=== PATIENT | male | born 1975 | race Caucasian/White ===

== ENCOUNTER 2017-09-07 15:57 | Emergency (ER) | payer SELFPAY ==
[~2017-09-07] VITALS: Ht 175.3 cm; Wt 81.5 kg
[~2017-09-07 15:57] MED LIST: Z.0.NO CURRENT MEDS
[2017-09-07 15:59] VITALS: BP 132/100; PULSE 107; RESP 20; TEMP 98.7; O2SAT 96
[2017-09-07 17:18] LABS: AUTOMATED NEUTROPHIL # 3.4 TH/MM3 (1.8-7.7); BASOPHIL # 0.1 TH/MM3 (0-0.2); BASOPHIL % 0.9 % (0.0-2.0); EOSINOPHIL % 0.8 % (0.0-4.0); HEMATOCRIT 48.5 % (39.0-51.0); HEMOGLOBIN 16.9 GM/DL (13.0-17.0); LYMPH % 30.1 % (9.0-44.0); LYMPHOCYTE # 1.8 TH/MM3 (1.0-4.8); MEAN CELL VOLUME 94.5 FL (80.0-100.0); MEAN CORPUSCULAR HGB CONC 34.9 % (32.0-36.0); MEAN PLATELET VOLUME 7.6 FL (7.0-11.0); MONO % 10.1 % (0.0-8.0); MONOCYTE # 0.6 TH/MM3 (0-0.9); NEUT % 58.1 % (16.0-70.0); PLATELET COUNT 240 TH/MM3 (150-450); RED BLOOD COUNT 5.13 MIL/MM3 (4.50-5.90); RED CELL DISTRIBUTION WIDTH 12.9 % (11.6-17.2); WHITE BLOOD COUNT 5.9 TH/MM3 (4.0-11.0)
--- NOTE | 2017-09-07 17:19 | PD ---
HPI Chief Complaint: Medical Clearance Time Seen by Provider: 16:02 Travel History International Travel<30 days: No Contact w/Intl Traveler<30days: No Traveled to known affect area: No History of Present Illness HPI Pt is a 41-year-old male presenting to the emergency department for detox. Patient states he went to [facility] for detox but started vomiting 30 minutes prior to arrival. He was then sent here. Patient states his last alcoholic drink was 1 hour ago, he reports taking several beers and vodka this morning. He reports daily alcohol use. Patient presents with his father. He denies any suicidal or homicidal ideations. He denies any abdominal pain but still feels nauseated now. There are no alleviating factors. Onset was sudden. Patient states that he has a long family history of alcoholism. He has no physical complaints otherwise at this time [facility] Past Medical History Arthritis: Yes (MILD AND OCCASSIONAL) Autoimmune Disease: No Blood Disorders: No Anxiety: No Depression: No Cancer: No Cardiovascular Problems: No Chemotherapy: No Diabetes: No Diminished Hearing: No Endocrine: No GERD: Yes Glaucoma: No Genitourinary: No Immune Disorder: No Implanted Vascular Access Dvce: No Musculoskeletal: Yes Neurologic: No Psychiatric: No Reproductive: No Respiratory: No Radiation Therapy: No Sickle Cell Disease: No Thyroid Disease: No Past Surgical History AICD: No Arteriovenous Shunt: No Insulin Pump: No Joint Replacement: No Pacemaker: No Other Surgery: Yes (Jaw surgery ) Social History Alcohol Use: Yes (etoh abuse ) Tobacco Use: Yes (1/2 PPD) Substance Use: Yes (Poly) Allergies-Medications (Allergen,Severity, Reaction): Coded Allergies: No Known Allergies (Verified , 12/11/12) Reported Meds & Prescriptions Reported Meds & Active Scripts Active Reported No Current Meds (Miscellaneous Medication) Misc Review of Systems Except as stated in HPI: all other systems reviewed are Neg Cardiovascular: No: Chest Pain or Discomfort Respiratory: No: Shortness of Breath Gastrointestinal: Positive: Nausea, Vomiting, No: Abdominal Pain Psychiatric: Positive: Substance Abuse Physical Exam Narrative GENERAL: Intoxicated appearing, alert, well-developed, male. Presenting in no acute distress. SKIN: Warm and dry. HEAD: Normocephalic. EYES: No scleral icterus. No injection or drainage. CARDIOVASCULAR: Regular rate RESPIRATORY: No accessory muscle use. Data Data Last Documented VS Vital Signs Date Time Temp Pulse Resp B/P (MAP) Pulse Ox O2 Delivery O2 Flow Rate FiO2 09/07/17 17:21 09/07/17 15:59 98.7 107 20 96 Room Air Orders Orders Complete Blood Count With Diff (09/07/17 16:06) Comprehensive Metabolic Panel (09/07/17 16:06) Psych Screen (09/07/17 16:06) Alcohol (Ethanol) (09/07/17 16:06) Lipase (09/07/17 16:06) Labs Laboratory Tests Test 09/07/17 16:11 White Blood Count 5.9 TH/MM3 Red Blood Count 5.13 MIL/MM3 Hemoglobin 16.9 GM/DL Hematocrit 48.5 % Mean Corpuscular Volume 94.5 FL Mean Corpuscular Hemoglobin 33.0 PG Mean Corpuscular Hemoglobin Concent 34.9 % Red Cell Distribution Width 12.9 % Platelet Count 240 TH/MM3 Mean Platelet Volume 7.6 FL Neutrophils (%) (Auto) 58.1 % Lymphocytes (%) (Auto) 30.1 % Monocytes (%) (Auto) 10.1 % Eosinophils (%) (Auto) 0.8 % Basophils (%) (Auto) 0.9 % Neutrophils # (Auto) 3.4 TH/MM3 Lymphocytes # (Auto) 1.8 TH/MM3 Monocytes # (Auto) 0.6 TH/MM3 Eosinophils # (Auto) 0.0 TH/MM3 Basophils # (Auto) 0.1 TH/MM3 CBC Comment DIFF FINAL Differential Comment Blood Urea Nitrogen 9 MG/DL Creatinine 0.91 MG/DL Random Glucose 126 MG/DL Total Protein 7.6 GM/DL Albumin 4.0 GM/DL Calcium Level 8.3 MG/DL Alkaline Phosphatase 99 U/L Aspartate Amino Transf (AST/SGOT) 86 U/L Alanine Aminotransferase (ALT/SGPT) 72 U/L Total Bilirubin 0.2 MG/DL Sodium Level 146 MEQ/L Potassium Level 3.2 MEQ/L Chloride Level 108 MEQ/L Carbon Dioxide Level 25.6 MEQ/L Anion Gap 12 MEQ/L Estimat Glomerular Filtration Rate 92 ML/MIN Lipase 118 U/L Ethyl Alcohol Level 363 MG/DL MDM Medical Decision Making Medical Screen Exam Complete: Yes Emergency Medical Condition: Yes Interpretation(s) Laboratory Tests Test 09/07/17 16:11 White Blood Count 5.9 TH/MM3 Red Blood Count 5.13 MIL/MM3 Hemoglobin 16.9 GM/DL Hematocrit 48.5 % Mean Corpuscular Volume 94.5 FL Mean Corpuscular Hemoglobin 33.0 PG Mean Corpuscular Hemoglobin Concent 34.9 % Red Cell Distribution Width 12.9 % Platelet Count 240 TH/MM3 Mean Platelet Volume 7.6 FL Neutrophils (%) (Auto) 58.1 % Lymphocytes (%) (Auto) 30.1 % Monocytes (%) (Auto) 10.1 % Eosinophils (%) (Auto) 0.8 % Basophils (%) (Auto) 0.9 % Neutrophils # (Auto) 3.4 TH/MM3 Lymphocytes # (Auto) 1.8 TH/MM3 Monocytes # (Auto) 0.6 TH/MM3 Eosinophils # (Auto) 0.0 TH/MM3 Basophils # (Auto) 0.1 TH/MM3 CBC Comment DIFF FINAL Differential Comment Blood Urea Nitrogen 9 MG/DL Creatinine 0.91 MG/DL Random Glucose 126 MG/DL Total Protein 7.6 GM/DL Albumin 4.0 GM/DL Calcium Level 8.3 MG/DL Alkaline Phosphatase 99 U/L Aspartate Amino Transf (AST/SGOT) 86 U/L Alanine Aminotransferase (ALT/SGPT) 72 U/L Total Bilirubin 0.2 MG/DL Sodium Level 146 MEQ/L Potassium Level 3.2 MEQ/L Chloride Level 108 MEQ/L Carbon Dioxide Level 25.6 MEQ/L Anion Gap 12 MEQ/L Estimat Glomerular Filtration Rate 92 ML/MIN Lipase 118 U/L Ethyl Alcohol Level 363 MG/DL Vital Signs Date Time Temp Pulse Resp B/P (MAP) Pulse Ox O2 Delivery O2 Flow Rate FiO2 09/07/17 17:21 09/07/17 15:59 98.7 107 20 132/100 (111) 96 Room Air Differential Diagnosis Substance abuse versus withdrawal versus metabolic abnormality versus other Narrative Course Patient is a 41-year-old male who presented to the emergency department for detox. He presented with his father who is concerned about his alcoholism. Patient is mildly tachycardic on arrival but is well-appearing otherwise. Workup initiated in triage, patient is awaiting bed placement. Patient was called to be placed in a bed, he was no longer found in the emergency department. Patient left AMA. Diagnosis Primary Impression: Left against medical advice Kristen Toney Sep 07, 2017 17:19
[2017-09-07 17:37] LABS: ALKALINE PHOSPHATASE 99 U/L (45-117); TOTAL BILIRUBIN ADULT 0.2 MG/DL (0.2-1.0); TOTAL PROTEIN 7.6 GM/DL (6.4-8.2)
[2017-09-07 17:44] LABS: ALT (GPT) 72 U/L (12-78); AST (GOT) 86 U/L (15-37); BICARBONATE 25.6 MEQ/L (21.0-32.0); BLOOD UREA NITROGEN 9 MG/DL (7-18); CALCIUM 8.3 MG/DL (8.5-10.1); CHLORIDE 108 MEQ/L (98-107); CREATININE 0.91 MG/DL (0.60-1.30); GLOMERULAR FILTRATION RATE 92 ML/MIN (>89); GLUCOSE,RANDOM 126 MG/DL (74-106); LIPASE 118 U/L (73-393); SODIUM (NA) 146 MEQ/L (136-145)
== END 2017-09-07 17:19 | disposition left against medical advice (07) ==
LOC: NED 15:57
DX: R11.2 Nausea with vomiting, unspecified (principal); F10.20 Alcohol dependence, uncomplicated; F17.200 Nicotine dependence, unspecified, uncomplicated; Y90.8 Blood alcohol level of 240 mg/100 ml or more
CPT/HCPCS: 80053; 80307; 83690; 85025; 99283

== ENCOUNTER 2017-09-26 17:43 | Emergency (ER) | payer OTHER ==
[~2017-09-26] VITALS: Ht 175.3 cm; Wt 80.0 kg
[2017-09-26 18:00] VITALS: BP 165/90; PULSE 110; RESP 18; TEMP 97.9; O2SAT 99
[2017-09-26 19:48] LABS: BASOPHIL # 0.1 TH/MM3 (0-0.2); EOSINOPHIL % 0.4 % (0.0-4.0); HEMATOCRIT 47.7 % (39.0-51.0); HEMOGLOBIN 16.9 GM/DL (13.0-17.0); LYMPH % 19.3 % (9.0-44.0); LYMPHOCYTE # 1.1 TH/MM3 (1.0-4.8); MEAN CELL VOLUME 91.5 FL (80.0-100.0); MEAN CORPUSCULAR HEMOGLOBIN 32.5 PG (27.0-34.0); MEAN CORPUSCULAR HGB CONC 35.5 % (32.0-36.0); MEAN PLATELET VOLUME 7.3 FL (7.0-11.0); MONO % 8.2 % (0.0-8.0); MONOCYTE # 0.5 TH/MM3 (0-0.9); NEUT % 71.1 % (16.0-70.0); PLATELET COUNT 143 TH/MM3 (150-450); RED BLOOD COUNT 5.21 MIL/MM3 (4.50-5.90); RED CELL DISTRIBUTION WIDTH 13.1 % (11.6-17.2); WHITE BLOOD COUNT 5.6 TH/MM3 (4.0-11.0)
[2017-09-26 20:29] LABS: ALBUMIN 4.3 GM/DL (3.4-5.0); ALKALINE PHOSPHATASE 128 U/L (45-117); ALT (GPT) 60 U/L (12-78); AST (GOT) 87 U/L (15-37); BICARBONATE 25.6 MEQ/L (21.0-32.0); BLOOD UREA NITROGEN 13 MG/DL (7-18); CALCIUM 8.8 MG/DL (8.5-10.1); CHLORIDE 106 MEQ/L (98-107); CREATININE 0.84 MG/DL (0.60-1.30); GLOMERULAR FILTRATION RATE 101 ML/MIN (>89); GLUCOSE,RANDOM 98 MG/DL (74-106); SODIUM (NA) 142 MEQ/L (136-145); TOTAL BILIRUBIN ADULT 0.4 MG/DL (0.2-1.0); TOTAL PROTEIN 8.1 GM/DL (6.4-8.2)
[2017-09-26 20:30] LABS: ACETAMINOPHEN LESS THAN 2.0 MCG/ML (10.0-30.0)
--- NOTE | 2017-09-26 21:15 | PD ---
HPI Chief Complaint: Psychiatric Symptoms Time Seen by Provider: 21:03 Travel History International Travel<30 days: No Contact w/Intl Traveler<30days: No Traveled to known affect area: No History of Present Illness HPI 41-year-old male was Burger acted and brought in for psychiatric evaluation. Patient has been an alcoholic for the past 20 years. Patient's father called law enforcement because patient has been threatened his brother and his father at home. Patient was reported to be violent at home. Patient may has history of bipolar disorder and split personality. Patient has history of alcohol abuse and possible DVT in the past. Patient denies any illicit drug abuse. Patient denies any medical problem. Patient states that he is not on any routine medication. Patient denies any headache. Patient denies any chest pain or shortness of breath. Patient denies abdominal pain. Patient denies any nausea vomiting diarrhea. Patient denies any focal weakness or numbness of the extremity. 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 PFSH Past Medical History Arthritis: Yes (MILD AND OCCASSIONAL) Autoimmune Disease: No Blood Disorders: No Anxiety: No Depression: No Cancer: No Cardiovascular Problems: No Chemotherapy: No Diabetes: No Diminished Hearing: No Endocrine: No Gastrointestinal Disorders: Yes GERD: Yes Glaucoma: No Genitourinary: No Immune Disorder: No Implanted Vascular Access Dvce: No Musculoskeletal: Yes Neurologic: No Psychiatric: No Reproductive: No Respiratory: No Radiation Therapy: No Sickle Cell Disease: No Thyroid Disease: No ?: Not Past Surgical History AICD: No Arteriovenous Shunt: No Insulin Pump: No Joint Replacement: No Pacemaker: No Other Surgery: Yes (Jaw surgery ) Social History Alcohol Use: Yes (etoh abuse ) Tobacco Use: Yes (1/2 PPD) Substance Use: Yes (Poly) Allergies-Medications (Allergen,Severity, Reaction): Coded Allergies: No Known Allergies (Verified Adverse Reaction, Unknown, 09/26/17) Reported Meds & Prescriptions Reported Meds & Active Scripts Active Reported No Current Meds (Miscellaneous Medication) Misc Review of Systems General / Constitutional: No: Fever Eyes: No: Visual changes HENT: No: Headaches Cardiovascular: No: Chest Pain or Discomfort Respiratory: No: Shortness of Breath Gastrointestinal: No: Abdominal Pain Genitourinary: No: Dysuria Musculoskeletal: No: Pain Skin: No Rash Neurologic: No: Weakness Psychiatric: No: Depression Endocrine: No: Polydipsia Hematologic/Lymphatic: No: Easy Bruising Physical Exam Narrative GENERAL: Well-nourished, well-developed patient. SKIN: Focused skin assessment warm/dry. HEAD: Normocephalic. EYES: No scleral icterus. No injection or drainage. NECK: Supple, trachea midline. No JVD or lymphadenopathy. CARDIOVASCULAR: Regular rate and rhythm without murmurs, gallops, or rubs. RESPIRATORY: Breath sounds equal bilaterally. No accessory muscle use. GASTROINTESTINAL: Abdomen soft, non-tender, nondistended. MUSCULOSKELETAL: No cyanosis, or edema. BACK: Nontender without obvious deformity. No CVA tenderness. Neurologic exam: Patient with mild lethargy however answer questions appropriately. Patient moves all extremities well. No obvious focal neurological deficit. Data Data Last Documented VS Vital Signs Date Time Temp Pulse Resp B/P (MAP) Pulse Ox O2 Delivery O2 Flow Rate FiO2 09/26/17 18:00 97.9 110 18 165/90 (115) 99 Orders Orders Complete Blood Count With Diff (09/26/17 18:36) Comprehensive Metabolic Panel (09/26/17 18:36) Thyroid Stimulating Hormone (09/26/17 18:36) Psych Screen (09/26/17 18:36) Drug Screen, Random Urine (09/26/17 18:36) Alcohol (Ethanol) (09/26/17 18:36) Salicylates (Aspirin) (09/26/17 18:36) Tylenol (Acetaminophen) (09/26/17 18:36) Labs Laboratory Tests Test 09/26/17 19:13 White Blood Count 5.6 TH/MM3 Red Blood Count 5.21 MIL/MM3 Hemoglobin 16.9 GM/DL Hematocrit 47.7 % Mean Corpuscular Volume 91.5 FL Mean Corpuscular Hemoglobin 32.5 PG Mean Corpuscular Hemoglobin Concent 35.5 % Red Cell Distribution Width 13.1 % Platelet Count 143 TH/MM3 Mean Platelet Volume 7.3 FL Neutrophils (%) (Auto) 71.1 % Lymphocytes (%) (Auto) 19.3 % Monocytes (%) (Auto) 8.2 % Eosinophils (%) (Auto) 0.4 % Basophils (%) (Auto) 1.0 % Neutrophils # (Auto) 4.0 TH/MM3 Lymphocytes # (Auto) 1.1 TH/MM3 Monocytes # (Auto) 0.5 TH/MM3 Eosinophils # (Auto) 0.0 TH/MM3 Basophils # (Auto) 0.1 TH/MM3 CBC Comment DIFF FINAL Differential Comment Blood Urea Nitrogen 13 MG/DL Creatinine 0.84 MG/DL Random Glucose 98 MG/DL Total Protein 8.1 GM/DL Albumin 4.3 GM/DL Calcium Level 8.8 MG/DL Alkaline Phosphatase 128 U/L Aspartate Amino Transf (AST/SGOT) 87 U/L Alanine Aminotransferase (ALT/SGPT) 60 U/L Total Bilirubin 0.4 MG/DL Sodium Level 142 MEQ/L Potassium Level 3.5 MEQ/L Chloride Level 106 MEQ/L Carbon Dioxide Level 25.6 MEQ/L Anion Gap 10 MEQ/L Estimat Glomerular Filtration Rate 101 ML/MIN Thyroid Stimulating Hormone 3rd Gen 0.963 uIU/ML Salicylates Level LESS THAN 1.7 MG/DL Urine Opiates Screen NEG Acetaminophen Level LESS THAN 2.0 MCG/ML Urine Barbiturates Screen NEG Urine Amphetamines Screen NEG Urine Benzodiazepines Screen NEG Urine Cocaine Screen NEG Urine Cannabinoids Screen POS Ethyl Alcohol Level 360 MG/DL [facility] Medical Decision Making Medical Screen Exam Complete: Yes Emergency Medical Condition: Yes Interpretation(s) 21:13 PM. CBC within normal limits. CMP within normal limits. AST 87. Alkaline phosphatase 128. Acetaminophen and salicylate level normal. Urine drug screen positive for cannabis. Alcohol 360. Differential Diagnosis Differential diagnosis including alcohol intoxication, substance-induced mood disorder, alcohol withdrawal, DT. Narrative Course 41-year-old male was Burger acted for threatening behavior and alcohol abuse. 21 :15 PM. Patient is medically cleared for psychiatric evaluation. Diagnosis Primary Impression: Alcohol intoxication Qualified Codes: F10.920 - Alcohol use, unspecified with intoxication, uncomplicated Murali Lawson MD Sep 26, 2017 21:15
[2017-09-27] MEDS ORDERED: LORazepam 1 MG TAB PO PRN (03:30)
[2017-09-27] MEDS ORDERED: FLUMAZENIL 0.5 MG/5 ML VIAL IV PUSH PRN (03:30)
[2017-09-27] MEDS ORDERED: LORazepam 2 MG/ML VIAL IV PUSH PRN ×4 (03:30)
[2017-09-27] MEDS ORDERED: ONDANSETRON ODT 4 MG TAB PO ONE ×2 (03:30→11:30)
[2017-09-27 07:00] VITALS: BP 142/82; PULSE 102; RESP 18; O2SAT 98
[2017-09-27] MEDS: LORazepam 2 MG TAB PO PRN ×2 (11:35→20:30)
[2017-09-27 18:15] VITALS: BP 147/89; PULSE 100; RESP 20
[2017-09-28 02:23] VITALS: BP 140/91; PULSE 82; RESP 18; O2SAT 98
[2017-09-28 06:55] VITALS: BP 135/85; PULSE 51; RESP 17; O2SAT 96
[2017-09-28 10:15] VITALS: BP 163/97; PULSE 97; RESP 18; O2SAT 97
--- NOTE | 2017-09-28 12:04 | PD ---
Physical Exam Time Seen by Provider: 12:[address] Disla has evaluated patient, lifted Burger act and cleared the patient for discharge. Data Data Last Documented VS Vital Signs Date Time Temp Pulse Resp B/P (MAP) Pulse Ox O2 Delivery O2 Flow Rate FiO2 09/28/17 10:15 97 18 163/97 (119) 97 Room Air 09/26/17 18:00 97.9 Orders Orders Complete Blood Count With Diff (09/26/17 18:36) Comprehensive Metabolic Panel (09/26/17 18:36) Thyroid Stimulating Hormone (09/26/17 18:36) Psych Screen (09/26/17 18:36) Drug Screen, Random Urine (09/26/17 18:36) Alcohol (Ethanol) (09/26/17 18:36) Salicylates (Aspirin) (09/26/17 18:36) Tylenol (Acetaminophen) (09/26/17 18:36) Alcohol Withdrawal Asmt-Ciwa ONCE (09/27/17 03:28) Flumazenil Inj (Romazicon Inj) (09/27/17 03:30) Lorazepam (Ativan) (09/27/17 03:30) Lorazepam Inj (Ativan Inj) (09/27/17 03:30) Lorazepam (Ativan) (09/27/17 03:30) Lorazepam Inj (Ativan Inj) (09/27/17 03:30) Lorazepam Inj (Ativan Inj) (09/27/17 03:30) Lorazepam Inj (Ativan Inj) (09/27/17 03:30) Ondansetron Odt (Zofran Odt) (09/27/17 03:30) Diet Regular Basic (09/27/17 Breakfast) Diet Regular Basic (09/27/17 Lunch) Ondansetron Odt (Zofran Odt) (09/27/17 11:30) Diet Regular Basic (09/27/17 Dinner) Diet Regular Basic (09/28/17 Breakfast) Diet Regular Basic (09/28/17 Lunch) Labs Laboratory Tests Test 09/26/17 19:13 White Blood Count 5.6 TH/MM3 Red Blood Count 5.21 MIL/MM3 Hemoglobin 16.9 GM/DL Hematocrit 47.7 % Mean Corpuscular Volume 91.5 FL Mean Corpuscular Hemoglobin 32.5 PG Mean Corpuscular Hemoglobin Concent 35.5 % Red Cell Distribution Width 13.1 % Platelet Count 143 TH/MM3 Mean Platelet Volume 7.3 FL Neutrophils (%) (Auto) 71.1 % Lymphocytes (%) (Auto) 19.3 % Monocytes (%) (Auto) 8.2 % Eosinophils (%) (Auto) 0.4 % Basophils (%) (Auto) 1.0 % Neutrophils # (Auto) 4.0 TH/MM3 Lymphocytes # (Auto) 1.1 TH/MM3 Monocytes # (Auto) 0.5 TH/MM3 Eosinophils # (Auto) 0.0 TH/MM3 Basophils # (Auto) 0.1 TH/MM3 CBC Comment DIFF FINAL Differential Comment Blood Urea Nitrogen 13 MG/DL Creatinine 0.84 MG/DL Random Glucose 98 MG/DL Total Protein 8.1 GM/DL Albumin 4.3 GM/DL Calcium Level 8.8 MG/DL Alkaline Phosphatase 128 U/L Aspartate Amino Transf (AST/SGOT) 87 U/L Alanine Aminotransferase (ALT/SGPT) 60 U/L Total Bilirubin 0.4 MG/DL Sodium Level 142 MEQ/L Potassium Level 3.5 MEQ/L Chloride Level 106 MEQ/L Carbon Dioxide Level 25.6 MEQ/L Anion Gap 10 MEQ/L Estimat Glomerular Filtration Rate 101 ML/MIN Thyroid Stimulating Hormone 3rd Gen 0.963 uIU/ML Salicylates Level LESS THAN 1.7 MG/DL Urine Opiates Screen NEG Acetaminophen Level LESS THAN 2.0 MCG/ML Urine Barbiturates Screen NEG Urine Amphetamines Screen NEG Urine Benzodiazepines Screen NEG Urine Cocaine Screen NEG Urine Cannabinoids Screen POS Ethyl Alcohol Level 360 MG/DL MDM Supervised Visit with RUTH: No Narrative Course Dr. Disla has evaluated patient, lifted Arminto act and cleared the patient for discharge. Patient contracts safety. Denies suicidal or homicidal ideations. Patient will be provided community resource packet to [facility] for follow-up. Has friends and family for support. Patient was medically cleared by alternate provider prior to psych screening. Patient has been evaluated by psychiatry and and is now cleared for discharge. Diagnosis Primary Impression: Alcohol intoxication Qualified Codes: F10.920 - Alcohol use, unspecified with intoxication, uncomplicated Referrals: [facility] (Out patient) [facility] Primary Care Physician Psychiatrist [facility] Patient Instructions: Abuse of Alcohol (ED), Alcohol Dependence (ED), Alcohol Intoxication (ED), General Instructions Additional Instruction: Contract safety to your self and others Stop drinking alcohol Follow-up in the community with Alcoholics Anonymous for support Follow-up with psychiatry Follow-up with primary care provider Follow-up with Travon See/[facility] Return to the emergency department immediately with worsening of symptoms Med/Other Pt SpecificInfo: No Change to Meds, No Meds Exist/No RX given Scripts No Active Prescriptions or Reported Meds Disposition: 01 DISCHARGE HOME Condition: Stable Iram Virgen Sep 28, 2017 12:04
--- NOTE | 2017-09-28 15:15 | PD.PSY.CON ---
Provisional Diagnosis Admission Date [place] I. Alcohol use disorder, alcohol induced mood disorder [place] II. Deferred [place] III. No medical history History of Present Illness Service Psychiatry Consult Requested By ER team Reason for Consult [facility] Primary Care Physician No Primary Care Physician HPI Patient was seen this morning around 11 AM. This is a late entry The patient is a 41-year-old man, domiciled his father in [place] , single, unemployed, without any previous psychiatric history other than alcohol use disorder, no previous psychiatric hospitalizations, no previous suicidal attempts, who was brought to the hospital [facility] for psychiatric evaluation. Patient has been an alcoholic for the past 20 years. Patient's father called law enforcement because patient has been threatened his brother and his father at home. Patient was reported to be violent at home. Patient has history of alcohol abuse and possible DVT in the past. Patient denies any illicit drug abuse. Patient denies any medical problem. Patient states that he is not on any routine medication. Patient denies any headache. Patient denies any chest pain or shortness of breath. Patient denies abdominal pain. Patient denies any nausea vomiting diarrhea. Patient denies any focal weakness or numbness of the extremity. 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 However, on psychiatric evaluation patient is calm, cooperative, pleasant. The patient says that he has been in a binge of drinking in the last days. He says that he might be aggressive with his father while he is intoxicated, but his the usually like that. He denies depression, he denies anxiety, denies suicidal and homicidal ideation, he denies visual and auditory hallucinations. On longitudinal observation the patient has been mostly calm, cooperative, with no behavioral problems or aggressive behavior. Patient presented some withdrawal symptoms the was treated with Ativan. Review of Systems Constitutional: DENIES: Diaphoretic episodes, Fatigue, Fever, Weight gain, Weight loss, Chills, Dizziness, Change in appetite, Night Sweats Endocrine: DENIES: Heat/cold intolerance, Polydipsia, Polyuria, Polyphagia Eyes: DENIES: Blurred vision, Diplopia, Eye inflammation, Eye pain, Vision loss , Photosensitivity, Double Vision Ears, nose, mouth, throat: DENIES: Tinnitus, Hearing loss, Vertigo, Nasal discharge, Oral lesions, Throat pain, Hoarseness, Ear Pain, Running Nose, Epistaxis, Sinus Pain, Toothache, Odynophagia Respiratory: DENIES: Apneas, Cough, Snoring, Wheezing, Hemoptysis, Sputum production, Shortness of breath Cardiovascular: DENIES: Chest pain, Palpitations, Syncope, Dyspnea on Exertion , PND, Lower Extremity Edema, Orthopnea, Claudication Gastrointestinal: DENIES: Abdominal pain, Black stools, Bloody stools, Constipation, Diarrhea, Nausea, Vomiting, Difficulty Swallowing, Anorexia Genitourinary: DENIES: Sexual dysfunction, Urinary frequency, Urinary incontinence, Urgency, Hematuria, Dysuria, Nocturia, Penile Discharge, Testicular Pain, Testicular Swelling Musculoskeletal: DENIES: Joint pain, Muscle aches, Stiffness, Joint Swelling, Back pain, Neck pain Integumentary: DENIES: Abnormal pigmentation, Nail changes, Pruritus, Rash Hematologic/lymphatic: DENIES: Bruising, Lymphadenopathy Immunologic/allergic: DENIES: Eczema, Urticaria Neurologic: DENIES: Abnormal gait, Headache, Localized weakness, Paresthesias, Seizures, Speech Problems, Tremor, Poor Balance Psychiatric: DENIES: Anxiety, Confusion, Mood changes, Depression, Hallucinations, Agitation, Suicidal Ideation, Homicidal Ideation, Delusions Past Family Social History Coded Allergies: No Known Allergies (Verified Adverse Reaction, Unknown, 09/26/17) Discontinued Reported Medications Miscellaneous (No Current Meds) Misc 01/31/13 Physical Exam Vital Signs Vital Signs Date Time Temp Pulse Resp B/P (MAP) Pulse Ox O2 Delivery O2 Flow Rate FiO2 09/28/17 13:17 09/28/17 10:15 97 18 97 Room Air 09/26/17 18:00 97.9 Mental Status Examination Appearance: Appropriate Consciousness: Alert Orientation: x4 Motor Activity: Normal gait Speech: Unremarkable Language: Adequate Fund of Knowledge: Adequate Attention and Concentration: Adequate Memory: Unremarkable Mood: Appropriate Affect: Appropriate Thought Process & Associations: Intact Thought Content: Appropriate Hallucination Type: None Delusion Type: None Suicidal Ideation: No Suicidal Plan: No Suicidal Intention: No Homicidal Ideation: No Homicidal Plan: No Homicidal Intention: No Insight: Adequate Judgment: Adequate Assessment & Plan Problem List: (1) Alcohol abuse with alcohol-induced mood disorder ICD Codes: F10.14 - Alcohol abuse with alcohol-induced mood disorder Assessment & Plan: The patient denies depressive symptoms, denies anxiety, denies juana and psychosis. He denies suicidal and homicidal ideation, he denies visual and auditory hallucinatio be lifted.ns. Recent and aggressive behavior and suicidal statement to his father was most probably secondary to acute alcohol intoxication. The patient does not meet criteria for involuntary psychiatric admission at this moment. He will be connected with detox/ rehabilitation in [facility]. Burger act will be lifted . Assessment & Plan Estimated LOS: days Mario Mohamud MD Sep 28, 2017 15:15
== END 2017-09-28 13:19 | disposition home or self-care (01) ==
LOC: NEPD 17:43 → NEPJ 09-28 13:19
DX: F10.129 Alcohol abuse with intoxication, unspecified (principal); F31.9 Bipolar disorder, unspecified; F17.210 Nicotine dependence, cigarettes, uncomplicated; Y90.8 Blood alcohol level of 240 mg/100 ml or more
CPT/HCPCS: 80053; 80307; 84443; 85025; 96374; 99284; J2060